=== PATIENT | female | born 2000 | race Caucasian/White ===

== ENCOUNTER 2020-05-16 23:12 | Emergency (ER) | payer SELFPAY ==
--- NOTE | ~2020-05-16 | XR_ITS ---
EXAMINATION: XR chest 1V portable DATE: 05/16/2020 23:49 INDICATION: Shortness of breath. Headache. Nausea. TECHNIQUE: frontal view of the chest was obtained. COMPARISON: None FINDINGS: The lungs are clear with no focal airspace opacities, pulmonary edema, pleural effusion or pneumothor ax. The cardiomediastinal silhouette is normal. Visualized bones and soft tissues are unremarkable. IMPRESSION: 1. No acute cardiopulmonary disease. Reviewed, dictated and finalized at location [facility] [employer]
[2020-05-16 23:22] VITALS: BP 119/78; PULSE 90; RESP 18; TEMP 36.9; O2SAT 99
--- NOTE | 2020-05-16 23:28 | ED.GENADULT ---
HPI - General Adult General Chief complaint: Headache Stated complaint: COVID symptoms Time Seen by Provider: 05/16/20 23:18 Source: patient Mode of arrival: ambulatory Limitations: no limitations History of Present Illness HPI narrative: Patient is a 19-year-old female complaining of being exposed to Covid for the past month and now has nausea, vomiting, Diarrhea cough, body aches, and headache that started 1 week ago. Patient requesting for Covid test. Patient denies any chest pain, shortness of breath, abdominal pain. Patient's oxygen saturation at 99% on room air. Related Data Home Medications Medication Instructions Recorded Confirmed paroxetine HCl mg PO 06/12/19 paroxetine HCl mg PO 06/12/19 paroxetine HCl mg PO 07/08/19 clonidine HCl 05/16/20 lamotrigine 05/16/20 paroxetine HCl mg PO 05/16/20 Allergies Allergy/AdvReac Type Severity Reaction Status Date / Time metformin Allergy Severe Anaphylaxis Verified 05/16/20 23:24 Review of Systems Review of Systems: All systems reviewed & are unremarkable except as noted in HPI and below Constitutional: Constitutional: Denies chills, Denies excessive sweating, Denies fatigue, Denies fever(s), Denies headache(s), Denies lethargy, Denies malaise, Denies weakness and Denies weight loss Eyes: Eyes: Denies blurry vision, Denies change in vision and Denies loss of vision ENT: Denies dizziness, Denies ear discharge, Denies headache(s), Denies lip swelling, Denies epistaxis, Denies nasal congestion, Denies neck pain, Denies throat swelling and Denies tongue swelling Cardiovascular: Cardiovascular: Denies chest pain, Denies chest pain at rest, Denies chest pain with activity, Denies diaphoresis, Denies rapid heart rate, Denies edema, Denies irregular heart rhythm, Denies lightheadedness, Denies palpitations, Denies dyspnea and Denies dyspnea on exertion Respiratory: Respiratory: Denies chest congestion, Denies cough, Denies hemoptysis, Denies dyspnea and Denies dyspnea on exertion Gastrointestinal: Gastrointestinal: Denies abdominal pain, Denies melena, Denies hematochezia, Denies diarrhea, Denies nausea, Denies vomiting and Denies hematemesis Musculoskeletal: Musculoskeletal: Denies abnormal gait, Denies deformity, Denies joint swelling, Denies limited range of motion, Denies neck pain and Denies numbness Neurologic: Denies Abnormal speech present, Denies abnormal gait, Denies confusion, Denies dizziness, Denies focal weakness, Denies loss of vision, Denies numbness, Denies Other visual disturbances, Denies Sensory deficit (Neuro) and Denies weakness Psychiatric: Psychiatric: Denies confusion, Denies depression, Denies auditory hallucinations, Denies homicidal ideation and Denies suicidal ideation Endocrine: Endocrine: Denies cold intolerance, Denies excessive sweating, Denies fatigue, Denies heat intolerance and Denies palpitations Hematologic/Lymphatic: Hematologic/Lymphatic: Denies easy bleeding and Denies easy bruising Allergic/Immunologic: Allergic/Immunologic: Denies lip swelling, Denies throat swelling and Denies tongue swelling PMFSH Past Medical History Medical History (Updated 05/16/20 @ 23:31 by Mike Lebron MD) Anxiety Bronchitis Depression Fibroids UTI (urinary tract infection) Wrist fracture Surgical History Surgical History (Updated 07/08/19 @ 12:01 by LITTLE Lee) No significant past surgical history Social History Social History Smoking packs per day: 0.5 Smoking cigarettes per day: 10.0 Smoking status: Current every day smoker Tobacco type: cigarettes Gender identity (if verbalized by the patient): Female Sexual Orientation (if Verbalized by the Patient): Straight or Heterosexual Exam Const: General: cooperative, healthy appearing, comfortable, no acute distress, well developed, alert and awake; No confusion Orientation/consciousness: oriented to per
[2020-05-16] MEDS: PROMETHAZINE HCL 25 MG/ML AMPUL IM (23:47)
[2020-05-17 00:29] VITALS: BP 121/83; PULSE 89; RESP 16; TEMP 36.6; O2SAT 100
[2020-05-17 19:16] LABS: SARS-CoV-2 RNA PCR Negative
== END 2020-05-17 00:31 | disposition home or self-care (01) ==
PROVIDERS: Emergency Provider Emergency Medicine; PCP Internal Medicine Infectious Disease
DX: B34.9 Viral infection, unspecified (principal); Z20.828 Contact with and (suspected) exposure to other viral communicable diseases; F41.9 Anxiety disorder, unspecified; F32.9 Major depressive disorder, single episode, unspecified; Z87.440 Personal history of urinary (tract) infections; F17.210 Nicotine dependence, cigarettes, uncomplicated
CPT/HCPCS: 71045; 87635; 96372; 99283; C9803; J2550; U0003